=== PATIENT | female | born 1930 | race Asian ===

== ENCOUNTER 2018-01-03 12:04 | Inpatient (IN) | payer MEDICARE, MEDICAID ==
[2018-01-03 12:29] LABS: % BASOPHILS 2.6 % (0.0-2.0); % LYMPHOCYTES 15.3 % (20.0-50.0); % MONOCYTES 5.2 % (2.0-10.0); % NEUTROPHILS 75.9 % (40.0-80.0); BASOPHILE ABSOLUTE 0.2 Th/cumm (0-0.2); EOSINOPHILE ABSOLUTE 0.1 Th/cmm (0.1-0.4); HEMATOCRIT 33.4 % (41.0-60); HEMOGLOBIN 11.3 gm/dL (12-16); LYMPHOCYTE ABSOLUTE 1.1 Th/cmm (1.5-3.0); MEAN CELL VOLUME 90.3 fl (81-100); MEAN CORPUSCULAR HEMOGLOBIN 30.5 pg (27.0-31.0); MEAN CORPUSCULAR HGB CONC 33.8 pg (28.0-36.0); MEAN PLATELET VOLUME 5.9 fl; MONOCYTE ABSOLUTE 0.4 Th/cmm (0.3-1.0); NEUTROPHILE ABSOLUTE 5.2 Th/cmm (1.8-8.0); PLATELET COUNT 318 Th/cmm (150-400); RED BLOOD COUNT 3.69 Mil/cmm (3.80-5.20); RED CELL DISTRIBUTION WIDTH 15.2 % (11.5-20.0)
--- NOTE | 2018-01-03 13:07 | ED Physician Chart ---
ED Chief Complaint/HPI - Patient Information Date Seen:: 01/03/18 Time Seen:: 12:20 Chief Complaint:: Depression History of Present Illness:: onset x 3 days of depressed mood qwith SIs; no report of trauma, H/As, S/T, neck pain, C/P, SOB, Abd. Pain, A/N/V/D/C, fever, chills, or urinary s/s Allergies:: Allergies Allergy/AdvReac Type Severity Reaction Status Date / Time No Known Allergies Allergy Verified 01/03/18 12:22 Vitals:: Vital Signs - 8 hr 01/03/18 12:23 Temp 97.8 F HR 102 RR 16 BP 94/57 O2 Sat % 96 Historian:: Patient, EMS Review:: Nurse's Note Reviewed, Old Chart Reviewed, EMS run form Reviewed ED Review of Systems - Review of Systems General/Constitutional: No fever, No chills, No weight loss, No weakness, No diaphoresis, No edema, No loss of appetite Skin: No skin lesions, No rash, No bruising Head: No headache, No light-headedness Eyes: No loss of vision, No pain, No diplopia ENT: No earache, No nasal drainage, No sore throat, No tinnitus Neck: No neck pain, No swelling, No thyromegaly, No stiffness, No mass noted Cardio Vascular: No chest pain, No palpitations, No PND, No orthopnea, No edema Pulmonary: No SOB, No cough, No sputum, No wheezing GI: No nausea, No vomiting, No diarrhea, No pain, No melena, No hematochezia, No constipation, No hematemesis G/U: No dysuria, No frequency, No hematuria, No nacturia [employer]: No vaginal discharge, No abnormal vaginal bleed, No contraction Musculoskeletal: No bone or joint pain, No back pain, No muscle pain Endocrine: No polyuria, No polydipsia Psychiatric: Prior psych history, Depression, Anxiety, Suicidal ideation, No homicidal ideation, No auditory hallucination, No visual hallucination Hematopoietic: No bruising, No lymphadenopathy Allergic/Immuno: No urticaria, No angioedema Neurological: No syncope, No focal symptoms, No weakness, No paresthesia, No headache, No seizure, No dizziness, Confusion, No vertigo ED Past Medical History - Past Medical History Obtainable: Yes Past Medical History: HTN, CAD, Dyslipidemia, Arthritis, Dementia Family History: HTN Social History: Non Smoker, No Alcohol, No Drug Use, , Care Facility Surgical History: Pacemaker Psychiatricy History: Depression, Dementia Medication: Reviewed Family Medical History - Family Member Mother History Unknown: Yes Living Status: ED Physical Exam - Physical Examination General/Constitutional: Awake, Well-developed, well-nourished, Alert, No distress, GCS 15, Non-toxic appearing, Ambulatory Head: Atraumatic Eyes: Lids, conjuctiva normal, PERRL, EOMI Skin: Nl inspection, No rash, No skin lesions, No ecchymosis, Well hydrated, No lymphadenopathy ENMT: External ears, nose nl, TM canals nl, Nasal exam nl, Lips, teeth, gums nl , Oropharynx nl, Tonsils nl Neck: Nontender, Full ROM w/o pain, No JVD, No nuchal rigidity, No bruit, No mass, No stridor Respiratory: Nl effort/Exclusion, Clear to Auscultation, No Wheeze/Rhonchi/Rales Cardio Vascular: RRR, No murmur, gallop, rubs, NL S1 S2, Carotid/Femoral/Distal pulses equal bilaterally GI: No tenderness/rebounding/guarding, No organomegaly, No hernia, Normal BS's, Nondistended, No mass/bruits, No McBurney tenderness, Rectum exam nl : No CVA tenderness Extremities: No tenderness or effusion, Full ROM, normal strength in all extremities, No edema, Normal digits & nails Neuro/Psych: Alert/oriented, DTR's symmetric, Normal sensory exam, Normal motor strength, Judgement/insight normal, Mood normal, Normal gait, No focal deficits Other Neuro/Psych comments:: + Psychomotor Retardation; + SIs; Mood/Affect: Labile; Confused and Disoriented Misc: Normal back, No paraspinal tenderness ED Labs/Radiology/EKG Results - Lab Results Results: Laboratory Tests 01/03/18 01/03/18 12:20 12:20 WBC 7.0 RBC 3.69 L Hgb 11.3 L Hct 33.4 L MCV 90.3 MCH 30.5 MCHC Differential 33.8 RDW 15.2 Plt Count 318 MPV 5.9 Neutrophils % 75.9 Lymphocytes % 15.3 L Monocytes % 5.2 Eosinophils % 1.0 Basophils % 2.6 H Troponin I 0.02 Comments:: Reviewed - EKG Interpretations EKG Time:: 12:26 Rate & Rhythm: 73; Atrial/Pacemaker Rhythms Comments:: non-specific st-t changes ED Septic Shock - . Is Septic Shock (SBP<90, OR Lactate>4 mmol\L) present?: No - <6hrs of presentation: Vital Signs: Vital Signs - 8 hr 01/03/18 12:23 Temp 97.8 F HR 102 RR 16 BP 94/57 O2 Sat % 96 ED Reassessment (Disposition) - Reassessment Reassessment Condition:: Improved - Diagnosis Diagnosis:: Dx: Depression; Suicidal Ideations; Medical Clearance; Alzheimer's Disease; Dementia - Aftercare/Follow up Instructions Aftercare/Follow-Up Instructions:: Counseled pt regarding lab results/diagnosis & need follow up, Counseled pt & family regarding lab results/diagnosis & need follow up - Patient Disposition Discharge/Transfer:: Acute Care w/in this hosp Admitted to:: [facility] Condition at Disposition:: Stable, Improved
[2018-01-03 14:01] LABS: ALB/GLOB RATIO 1.1 (1.0-1.8); ALBUMIN 3.8 gm/dL (3.7-5.3); ALKALINE PHOSPHATASE 96 U/L (34-104); ANION GAP 13.3 (7.0-16.0); BILIRUBIN,TOTAL 0.4 mg/dL (0.3-1.0); BUN - UREA NITROGEN 38 mg/dL (7-25); CALCIUM SERUM 9.1 mg/dL (8.6-10.3); CARBON DIOXIDE 21.7 mEq/L (21.0-31.0); CHLORIDE 105 mEq/L (98-107); CHOLESTEROL 150 mg/dL (<200); CREATININE - SERUM 2.7 mg/dL (0.6-1.2); GLUCOSE 130 mg/dL (70-105); HDL -HIGH DENSITY LIPOPROTEIN 64 mg/dL (23-92); SGOT 52 U/L (13-39); SGPT/ALT 59 U/L (7-52); SODIUM SERUM 135 mEq/L (136-145); TOTAL PROTEIN,SERUM 7.3 gm/dL (6.0-8.3); TRIGLYCERIDES 51 mg/dL (<150)
[2018-01-03 14:19] LABS: ACETAMINOPHEN < 10.0 ug/mL (10.0-30.0); SALICYLATES (ASPIRIN) < 25.0 mg/L (30.0-100.0)
[2018-01-03 17:37] VITALS: BP 108/61
[2018-01-03] MEDS ORDERED: Maalox 30 mL Cup PO PRN (17:38)
[2018-01-03] MEDS ORDERED: Magnesium Hydroxide (MOM) 30 mL UDC PO PRN (17:38)
[2018-01-03 20:52] LABS: A1C % 4.7 % (4.0-6.0)
[2018-01-04] MEDS: Multivitamin Tab PO SCH (17:41)
--- NOTE | 2018-01-04 22:58 | Psychosocial Evaluation ---
DATE OF SERVICE: 01/04/2018 JUSTIFICATION FOR HOSPITALIZATION: The patient is depressed, stating she wants to kill herself. CHIEF COMPLAINT: "I don't know why I am here. "I don't know where I am." HISTORY OF PRESENT ILLNESS: An 87-year-old female who has been making some suicidal comments, depressed and she wants to kill herself, transferred to the hospital. The patient does not really know where she is. She believes she may still be at [facility] and would like the nurses there to come and visit her. She thinks that she changed her room. She does not know the year. She does not know the month. She does not know the day of the week. The patient states she feels depressed "most of the time." It seems that her depressive symptoms have worsened over the past 3 days. Denying any intent or plan of wanting to hurt herself, but apparently fantasizing and talking about suicide to the point that the staff was getting very concerned. Sleep, "okay." The patient is eating okay. The patient is feeling hopeless and helpless, stating that her daughter is not visiting her and apparently her daughter had some medical problems, which the patient is concerned about. PAST PSYCHIATRIC HISTORY: Dementia. FAMILY HISTORY: Noncontributory. SOCIAL HISTORY: Born in the [facility]. since 1999. She has 3 kids, 2 sons, one of them is unfortunately . She does have a daughter who she states "helps care for me." No drugs, no alcohol, no tobacco. MEDICATIONS: Noted. MENTAL STATUS EXAMINATION: Stated age, fair eye contact. Speech within normal limits. Some confusion noted. Disorientation. Mood, "depressed." Affect withdrawn. Thought processes were confused. The patient today is denying any overt SI. No HI. No overt psychotic symptoms, but as the interview progresses, there are concerns that she may have some psychosis as she talks about hearing her daughter's voice, "all the time." Insight and judgment diminished given her confusional episodes. PROVISIONAL DIAGNOSES: Dementia with behaviors; mood, unspecified; anxiety, unspecified. MEDICAL: Please see full H and P. ESTIMATED LENGTH OF STAY: 5-7 days. ASSESSMENT: The patient apparently suicidal, depressed, also with concerns about psychotic symptoms, apparently hearing the voice of her daughter. PLAN: We will continue to monitor. We will attempt to increase collateral. Start Namenda. Treatment plan includes group as well as milieu therapy. CONDITIONS FOR DISCHARGE: Improved mood, improved affect, cessation of any SI, better coping. [facility]# [id number]
[2018-01-05] MEDS: Multivitamin Tab PO SCH (09:01)
--- NOTE | 2018-01-05 09:35 | Progress Notes ---
DATE: 01/05/2018 SUBJECTIVE: The patient is currently in the hospital, confused, disoriented, did not really know why she was here. The patient apparently came in because she was suicidal and making suicidal statements. The patient is confused about this. Currently, denying any SI, but noting that she feels "very angry, hopeless, helpless." The patient with poor memory. Still asking for [facility] staff. Sleep, "very good." Appetite, "pretty good." good. Medications were noted. Staff noting episodes of forgetfulness, but she is calm on exam, friendly on exam. The patient mostly withdrawn, sometimes restless, sometimes telling staff to "go away" and she does not want to talk. ASSESSMENT: The patient remains symptomatic, gets agitated at times, confused, concerns for suicidality. PLAN: We will continue to monitor. Given the events that brought her to the hospital, there are ongoing safety concerns. JOB# [id number]
[2018-01-06] MEDS: Multivitamin Tab PO SCH (09:14)
--- NOTE | 2018-01-06 23:27 | Progress Notes ---
DATE: 01/06/[address] Persaud covering for Dr. Robles. SUBJECTIVE: Chart reviewed and the patient interviewed. Also, discussed the patient's condition with the staff and reviewed records and labs. The patient is still confused and forgetful. The patient also is still withdrawn and is still severely depressed. The patient also still has flat affect. Otherwise, the patient is compliant with taking her medications with no side effects of medications. ASSESSMENT: The patient is still forgetful and confused. TREATMENT PLAN: Continue monitoring her behavior and her condition closely. Also, continue adjusting psychotropic medications and work on behavioral ____. JOB# [id number]
[2018-01-07] MEDS: Multivitamin Tab PO SCH (08:11)
--- NOTE | 2018-01-08 02:15 | Progress Notes ---
DATE: SUBJECTIVE: Chart reviewed and the patient interviewed. Also discussed the patient's condition with the staff and reviewed records and labs. The patient is still confused and is still forgetful. The patient also is depressed and is withdrawn. The patient also is having flat affect. The patient also is compliant with taking her medications with no side effect of medications. ASSESSMENT: The patient is still confused and is still depressed. TREATMENT PLAN: We will continue to monitor her behavior and condition closely and continue to follow up. [facility]# [id number]
--- NOTE | 2018-01-08 09:30 | History & Physical ---
ADMIT DATE: 01/03/2018 CHIEF COMPLAINT: Depression. HISTORY OF PRESENT ILLNESS: This is an 87-year-old female patient who was transferred from a detention and was admitted via the Emergency Room due to depression. The condition started a few days prior to admission as anxiety and restlessness. This was accompanied by weakness and lethargy. The patient was given supportive and symptomatic treatment; however, there was no improvement, hence was transferred to the Emergency Room and after evaluation by the ER physician, she was subsequently admitted for further treatment. PAST MEDICAL HISTORY: The patient had history of UTI, difficulty in walking, muscle wasting and atrophy, and anemia. FAMILY HISTORY: Unobtainable. REVIEW OF SYSTEMS: Unobtainable due to the patient's confusion and disorientation. PHYSICAL EXAMINATION: GENERAL: On admission, the patient was awake, verbally responsive. VITAL SIGNS: Blood pressure 128/80, pulse 88 per minute, respiration 18 per minute, and temperature 98 degrees Fahrenheit. HEENT: Normocephalic. Pupils PERRLA. Fundi not well appreciated due to the patient's inability to cooperate. Ears: No infection, no drainage. Nose: No septal deviation. Mouth: Fairly good oral hygiene. Oral mucosa is moist. NECK: Supple, no rigidity, no lymphadenopathy, no thyromegaly. Neck veins are not distended. THORAX: Symmetrical and equal in expansion. CARDIOVASCULAR: Regular in rate and rhythm. LUNGS: Reveal no rales, no wheezing, no shortness of breath. ABDOMEN: Soft, no rigidity, no organomegaly. Bowel sounds hypoactive. RECTAL: The patient refused. GENITALIA: Normal adult female genitalia. SKIN: No active dermatitis. EXTREMITIES: Pulses are palpable. Reflexes are present. There is no pedal edema. IMPRESSION: 1. Depression. 2. Anemia. 3. Psychosis. 4. Dehydration clinically. PLAN: We will try to rule out above condition and treat them accordingly. We will encourage the patient to drink more fluid. JOB# [id number]
[2018-01-08] MEDS: Multivitamin Tab PO SCH (10:35)
--- NOTE | 2018-01-08 23:52 | Progress Notes ---
DATE: 01/08/2018 SUBJECTIVE: The patient in the hospital. The patient remains somewhat confused, forgetful, depressed, withdrawn. She is noting her mood is somewhat better today. Her daughter visited. She states she has been praying more. She states she is " more in touch with the Lord." Sleeping well, eating well. Still remains somewhat withdrawn, isolative, but her affect is brighter. ASSESSMENT: The patient seems to be improving, calmer, more cooperative. Mood symptoms dissipating. Still remains forgetful, withdrawn. PLAN: We will continue to monitor, adjust and titrate medications. The patient does seem to be showing signs of improvement, verbalizing that she is feeling better. [facility]# [id number]
[2018-01-09] MEDS: Multivitamin Tab PO SCH (08:37)
--- NOTE | 2018-01-09 22:36 | Progress Notes ---
DATE: 01/09/2018 SUBJECTIVE: The patient seems to be calmer, more cooperative, still confused, disoriented, and likely approaching her baseline. No agitation and no escalation of behaviors. Medications were noted including dosages and frequency. Sleeping well, eating well, seems to be getting along well with staff and peers. Vitals were also reviewed. ASSESSMENT: The patient calmer, more cooperative, likely approaching her baseline. No agitation. She remains confused. PLAN: We will monitor and add Aricept to her regimen. We will monitor for further 24 hours. JOB# [id number]
[2018-01-10] MEDS: Multivitamin Tab PO SCH (08:33)
--- NOTE | 2018-01-10 20:18 | Progress Notes ---
DATE: 01/10/2018 The patient had been doing well, but today when I see her she is quite delusional, believing that her daughter is outside the room and driving around, "she is going to get lost in [place], drive her car into the [place]." The patient crying uncontrollably, in distress, tearful. The patient also telling staff that her daughter was stuck on the stairs down the hallway. Difficulty with sleep, ruminative. ASSESSMENT: The patient seems to be showing signs of distress, still symptomatic, tearful. We will hold off on discharge. Continue to monitor. Given her ongoing symptoms, she will need further hospitalization. JOB# [id number]
--- NOTE | 2018-01-11 08:05 | General Progress Note ---
Subjective - Review of Systems Service Date: 01/11/18 Subjective: Awake, alert, no acute distress. confused VS T97.7 P60 BP 153/78 P103 R19 Objective - Results Result Diagrams: 01/03/18 12:20 01/03/18 12:20 Recent Labs: Laboratory Last Values WBC 7.0 Th/cmm (4.8-10.8) 01/03/18 12:20 RBC 3.69 Mil/cmm (3.80-5.20) L 01/03/18 12:20 Hgb 11.3 gm/dL (12-16) L 01/03/18 12:20 Hct 33.4 % (41.0-60) L 01/03/18 12:20 MCV 90.3 fl (81-100) 01/03/18 12:20 MCH 30.5 pg (27.0-31.0) 01/03/18 12:20 MCHC Differential 33.8 pg (28.0-36.0) 01/03/18 12:20 RDW 15.2 % (11.5-20.0) 01/03/18 12:20 Plt Count 318 Th/cmm (150-400) 01/03/18 12:20 MPV 5.9 fl 01/03/18 12:20 Neutrophils % 75.9 % (40.0-80.0) 01/03/18 12:20 Lymphocytes % 15.3 % (20.0-50.0) L 01/03/18 12:20 Monocytes % 5.2 % (2.0-10.0) 01/03/18 12:20 Eosinophils % 1.0 % (0.0-5.0) 01/03/18 12:20 Basophils % 2.6 % (0.0-2.0) H 01/03/18 12:20 Sodium 135 mEq/L (136-145) L 01/03/18 12:20 Potassium 5.0 mEq/L (3.5-5.1) 01/03/18 12:20 Chloride 105 mEq/L (98-107) 01/03/18 12:20 Carbon Dioxide 21.7 mEq/L (21.0-31.0) 01/03/18 12:20 Anion Gap 13.3 (7.0-16.0) 01/03/18 12:20 BUN 38 mg/dL (7-25) H 01/03/18 12:20 Creatinine 2.7 mg/dL (0.6-1.2) H 01/03/18 12:20 Est GFR ( Amer) TNP 01/03/18 12:20 Est GFR (Non-Af Amer) TNP 01/03/18 12:20 BUN/Creatinine Ratio 14.1 01/03/18 12:20 Glucose 130 mg/dL (70-105) H 01/03/18 12:20 POC Glucose 94 MG/DL (70 - 105) 01/03/18 18:13 Hemoglobin A1c % 4.7 % (4.0-6.0) 01/03/18 12:20 Calcium 9.1 mg/dL (8.6-10.3) 01/03/18 12:20 Total Bilirubin 0.4 mg/dL (0.3-1.0) 01/03/18 12:20 AST 52 U/L (13-39) H 01/03/18 12:20 ALT 59 U/L (7-52) H 01/03/18 12:20 Alkaline Phosphatase 96 U/L (34-104) 01/03/18 12:20 Troponin I 0.02 ng/mL (0.01-0.05) 01/03/18 12:20 Total Protein 7.3 gm/dL (6.0-8.3) 01/03/18 12:20 Albumin 3.8 gm/dL (3.7-5.3) 01/03/18 12:20 Globulin 3.5 gm/dL 01/03/18 12:20 Albumin/Globulin Ratio 1.1 (1.0-1.8) 01/03/18 12:20 Triglycerides 51 mg/dL (<150) 01/03/18 12:20 Cholesterol 150 mg/dL (<200) 01/03/18 12:20 LDL Cholesterol Direct 69 mg/dL (75-193) L 01/03/18 12:20 HDL Cholesterol 64 mg/dL (23-92) 01/03/18 12:20 TSH 0.14 uIU/ml (0.34-5.60) L 01/03/18 12:20 Salicylates < 25.0 mg/L (30.0-100.0) L 01/03/18 12:20 Acetaminophen < 10.0 ug/mL (10.0-30.0) L 01/03/18 12:20 Ethyl Alcohol < 10 mg/dL (0-10) 01/03/18 12:20 RPR NONREACTIVE (NONREACTIVE) 01/03/18 12:20 - Physical Exam Vitals and I&O: Vital Signs Temp 97.7 F 01/11/18 07:51 Pulse 60 01/11/18 07:51 Resp 19 01/11/18 07:51 BP 153/78 01/11/18 07:51 Pulse Ox 97 01/11/18 07:51 Intake & Output 01/10/18 01/11/18 01/11/18 18:59 06:59 18:59 Intake Total 120 Output Total 1 Balance -1 120 Intake: Oral 120 Output: Stool 1 Other: # Voids 2 1 Active Medications: Current Medications Acetaminophen (Tylenol) 650 mg PO Q4HR PRN PRN Reason: Mild Pain / Temp above 100 Stop: 03/04/18 17:37 Al Hydrox/Mg Hydrox/Simethicone (Maalox) 30 ml PO Q4HR PRN PRN Reason: GI DISTRESS Stop: 03/04/18 17:37 Donepezil HCl (Aricept) 5 mg PO HS POLLO Stop: 03/10/18 20:59 Last Admin: 01/10/18 20:25 Dose: 5 mg Magnesium Hydroxide (Milk Of Magnesia) 30 ml PO HS PRN PRN Reason: Constipation Memantine (Namenda) 5 mg PO DAILY POLLO Stop: 03/05/18 08:59 Last Admin: 01/10/18 08:33 Dose: 5 mg Multivitamins/Vitamin C (Theragran) 1 tab PO DAILY POLLO Stop: 03/05/18 08:59 Last Admin: 01/10/18 08:33 Dose: 1 tab Zolpidem Tartrate (Ambien) 5 mg PO HS PRN PRN Reason: Insomnia Stop: 03/04/18 17:37 Last Admin: 01/05/18 20:35 Dose: 5 mg General: Alert, Oriented x3, No acute distress HEENT: Atraumatic, PERRLA, EOMI Neck: no Supple Cardiovascular: Regular rate, Normal S1, Normal S2 Lungs: Clear to auscultation Abdomen: Bowel sounds, Soft Extremities: no Clubbing, no Cyanosis, no Edema Neurological: Normal gait, Normal speech Assessment/Plan - Assessment Assessment: Psychosis Anemia UTI elevated BP - Plan Plan: continue current treatment. Nutritional Asmnt/Malnutr-PDOC - Dietary Evaluation Malnutrition Findings (Please click <Entered> for more info): Nutritional Asmnt/Malnutrition Start: 01/06/18 11: 14 Text: Status: Complete Freq: Protocol: Document 01/06/18 11:15 MMULEMMANUELLE (Rec: 01/06/18 11:23 [email or web address] PATINO- FNS1) Nutritional Asmnt/Malnutrition Patient General Information Nutritional Screening Moderate Risk Diagnosis Psychosis Pertinent Medical Hx/Surgical Hx anemia, htn, a-fib and Alzheimer's Subjective Information Per nursing notes, patient speaks Tagalog but is able to understand some simple Telugu . Tolerating current diet order without difficulty. Current Diet Order/ Nutrition Support Regular Patient / S.O Not Indicated Pertinent Medications Maalox, MOM, theragran Pertinent Labs (01/03) Na 135, BUN 38, Cr 2.7, AST 52, ALT 59 Nutritional Hx/Data Height 1.47 m Height (Calculated Centimeters) 147.3 Current Weight (lbs) 53.07 kg Weight (Calculated Kilograms) 53.1 Weight (Calculated Grams) 38562.3 [place] Body Weight 95 % [place] Body Weight 123 Body Mass Index (BMI) 24.4 Recent Weight Change No Weight Status Approriate GI Symptoms GI Symptoms None Last BM 01/04 x 1 Difficult in: None Food Allergies No Cultural/Ethnic/Rastafarian Belief None indicated Usual diet at home unknown Skin Integrity/Comment: Tato 18, intact Current %PO Good (75-100%) Estimated Nutritional Goals BEE in Kcals: Using Current wt Calories/Kcals/Kg 25-30 kcal/kg Using CBW 53.1kg Kcals Calculated ~2023-0104 kcal/day Protein: Using Current wt Protein g/k gm/kg Protein Calculated ~55 gm/day Fluid: ml ~3395-2982 ml/day ( 1 ml/kcal) Nutritional Problem 1. Problem Problem No nutrition diagnosis at this time Intervention/Recommendation Comments 1. Continue regular diet as tolerated by patient as she is adequately meeting nutrient needs. Expected Outcomes/Goals Expected Outcomes/Goals oral intake >75% of meals, weight stable, nutrition related labs normalize
[2018-01-11] MEDS: Multivitamin Tab PO SCH (09:14)
--- NOTE | 2018-01-11 16:17 | Discharge Summary ---
DATE OF DISCHARGE: 01/11/2018 JUSTIFICATION FOR HOSPITALIZATION: The patient is depressed and was making suicidal comments. HISTORY OF PRESENT ILLNESS: An 87-year-old female, making suicidal comments, depressed, does not know where she is, still believes she is in [place], very confused. She had apparently been fantasizing and talking about suicide. PAST PSYCHIATRIC HISTORY: Dementia. FAMILY HISTORY: Noncontributory. SOCIAL HISTORY: Born in the [facility]. She has 3 kids. I spoke with one of her daughters, Brooke. MEDICATIONS: Noted. MENTAL STATUS EXAMINATION: Please see full psych eval for details. PROVISIONAL DIAGNOSIS: Dementia with behaviors. MEDICAL HISTORY: Please see full H and P. HOSPITAL COURSE: After initial assessment, medications were started to address dementia, Aricept, Namenda. The patient denies depression, denies suicidality, very poor memory, sometimes believing that her daughter was in danger. She believes her daughter was driving a car into a [place]. Her hospitalization progressed, her mood improved, affect improved, still remains confused and disoriented. On 01/11/2018; however, she was no longer talking about any paranoid delusions. No longer believing her daughter was in danger. Apparently, her daughter came and convinced her that she was okay. CONDITION UPON DISCHARGE: Improved, good ADLs, allowing ADLs, good eye contact. Still with poor orientation. Mood "better." Affect broad. Thought processes were confused. No SI, no HI, no intent, no plan. No overt psychotic symptoms. Insight and judgment still diminished. PROVISIONAL DIAGNOSES: Dementia with behaviors and mood, unspecified. MEDICAL: Please see full H and P. PROGNOSIS: The patient follows up with outpatient mental health services and remains compliant with treatment. Prognosis will improve, otherwise guarded. [facility]# [id number]
== END 2018-01-11 13:00 | DRG 885 ==
LOC: ER 12:04 → GERO2 15:26
PROVIDERS: ADMIT Psychiatry & Neurology Psychiatry; ATTEND Psychiatry & Neurology Psychiatry
DX: F39 Unspecified mood [affective] disorder (principal); F02.81 Dementia in other diseases classified elsewhere, unspecified severity, with behavioral disturbance; R45.851 Suicidal ideations; N39.0 Urinary tract infection, site not specified; G30.9 Alzheimer's disease, unspecified; F41.9 Anxiety disorder, unspecified; I10 Essential (primary) hypertension; I25.10 Atherosclerotic heart disease of native coronary artery without angina pectoris; M19.90 Unspecified osteoarthritis, unspecified site; E78.5 Hyperlipidemia, unspecified; D64.9 Anemia, unspecified; F29 Unspecified psychosis not due to a substance or known physiological condition; E86.0 Dehydration; Z82.49 Family history of ischemic heart disease and other diseases of the circulatory system; Z95.0 Presence of cardiac pacemaker
CPT/HCPCS: 36415-UA; 80053-TC; 80061-TC; 80320-TC; 80329-TC; 82948-90; 83036-90; 84443-TC; 84484-TC; 85025-TC; 86592-TC; 93005